=== PATIENT | male | born 1965 | race Caucasian/White ===

== ENCOUNTER 2016-08-31 07:27 | Emergency (ER) | payer BC ==
[~2016-08-31] VITALS: Ht 175.3 cm; Wt 90.7 kg
[2016-08-31 08:09] LABS: HEMATOCRIT 43.3 % (38.0-50.0); MCH 29.3 PG (29.0-34.0); MCHC 34.9 G/DL (30.0-36.0); MCV 83.9 FL (86-99); MEAN PLAT.VOLUME 9.6 uM^3 (9.0-12.4); PLATELET COUNT 211 K/uL (156-360); RBC DIS.WIDTH-CV 12.3 % (11.8-14.6); RBC DIS.WIDTH-SD 37.5 % (39-53); RED BLOOD COUNT 5.16 M/uL (4.00-5.50); WHITE BLOOD COUNT 5.4 K/uL (4.1-10.2)
[2016-08-31 08:18] LABS: CHLORIDE 109 mEq/L (99-109); POTASSIUM 4.2 mEq/L (3.7-5.4); SODIUM 140 mEq/L (136-147)
[2016-08-31 08:20] LABS: GLUCOSE 104 mg/dL (70-99)
[2016-08-31 08:21] LABS: ANION GAP 10 MEQ/L (2-14)
[2016-08-31 08:24] LABS: GFR ESTIMATE (CALCULATED) > 59 mL/min/
[2016-08-31 08:25] LABS: UREA NITROGEN (BUN) 19 mg/dL (9-23)
[2016-08-31 08:29] LABS: TROP-I INTERPRETATION NEGATIVE; TROPONIN-I < 0.01 ng/mL (0.0-0.30)
[2016-08-31 10:57] LABS: TROP-I INTERPRETATION NEGATIVE; TROPONIN-I < 0.01 ng/mL (0.0-0.30)
[2016-08-31] MEDS ORDERED: INDOCIN50 MG PO (11:15)
[2016-08-31 11:39] VITALS: BP 142/92
== END 2016-08-31 11:41 | disposition home or self-care (01) ==
LOC: EME 07:27 → EXP 07:27
PROVIDERS: Physician Assistant
DX: M54.12 Radiculopathy, cervical region (principal); R07.9 Chest pain, unspecified; R06.00 Dyspnea, unspecified
CPT/HCPCS: 71020; 72040; 80048; 84484; 85027; 93005; 99281; 99284